=== PATIENT | female | born 1940 | race Caucasian/White ===

== ENCOUNTER 2018-11-18 11:51 | Inpatient (IN) | payer OTHER ==
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
[2018-11-18] MEDS ORDERED: morphine CARPU-JECT 4 MG/1 ML DISP.SYRIN IVPUSH ONE ×2 (12:13→12:30)
[2018-11-18] MEDS ORDERED: LIDOCAINE 5% TOPICAL PATCH TP ONE (12:13)
[2018-11-18] MEDS ORDERED: METHOCARBAMOL 500 MG TABLET PO ONE (12:13)
[2018-11-18] MEDS ORDERED: LIDOCAINE 5% TOPICAL PATCH ONE ×2 (12:22→22:31)
[2018-11-18] MEDS ORDERED: METHOCARBAMOL 500 MG TABLET ONE (12:22)
[2018-11-18] MEDS ORDERED: ACETAMINOPHEN 1000 MG/100 ML VIAL (NON FORMULARY) IVPB ONE (12:30)
[2018-11-18 13:02] LABS: BASO % 0.2 % (0-2.0); EOS % 0.4 % (0-4.5); HEMATOCRIT 33.8 % (32.4-45.2); HEMOGLOBIN 11.7 GM/dL (10.7-15.3); MCH 30.3 pg (25.7-33.7); MCHC 34.5 g/dl (32.0-36.0); MEAN CELL VOLUME 87.7 fl (80-96); MEAN PLT VOLUME 7.8 fl (7.5-11.1); MONO % 5.8 % (3.8-10.2); NEUT % 78.6 % (42.8-82.8); PLATELET COUNT 185 K/MM3 (134-434); RBC 3.85 M/mm3 (3.60-5.2); RDW 14.6 % (11.6-15.6); WHITE BLOOD COUNT 4.2 K/mm3 (4.0-10.0)
[2018-11-18] MEDS ORDERED: ACETAMINOPHEN INJECTION 100 ML IVPB ONE (13:02)
[2018-11-18 14:03] LABS: ALBUMIN 3.5 g/dl (3.4-5.0); ALK PHOS 69 U/L (45-117); ANION GAP 7 MMOL/L (8-16); BILIRUBIN,TOTAL 0.3 mg/dL (0.2-1); BLOOD UREA NITROGEN 23 mg/dL (7-18); CALCIUM 8.6 mg/dL (8.5-10.1); CHLORIDE 110 mmol/L (98-107); CO2 25 mmol/L (21-32); CREATININE 0.9 mg/dL (0.55-1.3); GLUCOSE,RANDOM 89 mg/dL (74-106); POTASSIUM 3.7 mmol/L (3.5-5.1); SGOT/AST 19 U/L (15-37); SGPT/ALT 17 U/L (13-61); SODIUM 141 mmol/L (136-145)
[2018-11-18] MEDS ORDERED: HYDROmorphone HCL CARPU-JECT 2 MG/1 ML DISP.SYRIN IVPB ONE (15:36)
[2018-11-18] MEDS ORDERED: HYDROmorphone HCl 2 MG/ML VIAL ONE (17:16)
[2018-11-18] MEDS ORDERED: SENNOSIDES 8.6MG TABLET (FP) PO PRN ×2 (18:57→19:05)
[2018-11-18] MEDS ORDERED: DOCUSATE SODIUM 100 MG CAPSULE (FP) PO PRN (18:57)
[2018-11-18] MEDS ORDERED: ACETAMINOPHEN 325 MG TABLET (FP) PO PRN (19:05)
[2018-11-18] MEDS ORDERED: ACETAMINOPHEN 325 MG TABLET (FP) ONE ×3 (19:54→21:00)
[2018-11-18] MEDS: ACETAMINOPHEN 325 MG TABLET (FP) PO SCH (21:00)
[2018-11-18] MEDS ORDERED: LIDOCAINE PATCH REMOVAL MC SCH (22:00)
[2018-11-18] MEDS ORDERED: POTASSIUM CHLORIDE ORAL LIQUID 20 MEQ/15 ML PO ONE (22:15)
[2018-11-18] MEDS ORDERED: MORPHINE SULFATE 2 MG/ML VIAL ONE (22:27)
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
[2018-11-18] MEDS ORDERED: POTASSIUM CHLORIDE ORAL LIQUID 20 MEQ/15 ML ONE (22:30)
[2018-11-18] MEDS ORDERED: HEPARIN NA (PORCINE) 5,000 UNITS/ML 1ML VIAL ONE (22:31)
[2018-11-18] MEDS: HEPARIN NA (PORCINE) 5,000 UNITS/ML 1ML VIAL SQ SCH (22:40)
[2018-11-18] MEDS: MORPHINE SULFATE 2 MG/ML VIAL IVPUSH PRN (22:40)
[2018-11-18] MEDS: MELATONIN 1 MG TABLET PO SCH (22:51)
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
[2018-11-18] MEDS ORDERED: LORazepam 0.5 MG TABLET ONE (22:59)
[2018-11-18] MEDS: LORazepam 1 MG TABLET PO SCH (23:05)
[2018-11-19] MEDS ORDERED: HYDROmorphone HCl 2 MG/ML VIAL IVPB ONE ×2 (01:10→07:07)
[2018-11-19] MEDS: ACETAMINOPHEN 325 MG TABLET (FP) PO SCH ×5 (01:17→21:19)
[2018-11-19 02:20] VITALS: BMI 25.0
[2018-11-19] MEDS: MORPHINE SULFATE 2 MG/ML VIAL IVPUSH PRN (05:19)
[2018-11-19] MEDS: LEVOTHYROXINE 125 MCG, LEVOTHYROXINE 100 MCG PO SCH (06:08)
[2018-11-19 07:42] LABS: BASO % 0.6 % (0-2.0); EOS % 1.8 % (0-4.5); HEMOGLOBIN 11.1 GM/dL (10.7-15.3); LYMPH % 24.7 % (8-40); MCH 29.9 pg (25.7-33.7); MCHC 33.5 g/dl (32.0-36.0); MEAN CELL VOLUME 89.2 fl (80-96); NEUT % 64.9 % (42.8-82.8); PLATELET COUNT 162 K/MM3 (134-434); RDW 14.8 % (11.6-15.6); WHITE BLOOD COUNT 3.1 K/mm3 (4.0-10.0)
[2018-11-19 09:35] LABS: ALBUMIN 3.4 g/dl (3.4-5.0); ALK PHOS 72 U/L (45-117); ANION GAP 9 MMOL/L (8-16); BILIRUBIN,TOTAL 1.1 mg/dL (0.2-1); BLOOD UREA NITROGEN 20 mg/dL (7-18); CALCIUM 8.1 mg/dL (8.5-10.1); CHLORIDE 108 mmol/L (98-107); CO2 22 mmol/L (21-32); CREATININE 0.9 mg/dL (0.55-1.3); GLUCOSE,RANDOM 86 mg/dL (74-106); MAGNESIUM 1.8 mg/dL (1.8-2.4); PHOSPHOROUS 3.4 mg/dL (2.5-4.9); POTASSIUM 4.3 mmol/L (3.5-5.1); SGOT/AST 19 U/L (15-37); SGPT/ALT 16 U/L (13-61); SODIUM 139 mmol/L (136-145); TOT PROT 6.8 g/dl (6.4-8.2)
[2018-11-19] MEDS ORDERED: LEVOTHYROXINE NA 200 MCG TABLET PO SCH (10:00)
[2018-11-19] MEDS: LORATADINE 10 MG TABLET PO SCH (10:02)
[2018-11-19] MEDS: LORazepam 1 MG TABLET PO SCH ×2 (10:02→22:01)
[2018-11-19] MEDS: POTASSIUM CHLORIDE TABS 10 MEQ TABLET.ER (FP) PO SCH ×2 (10:02→22:02)
[2018-11-19] MEDS: CALCITRIOL 0.25 MCG CAPSULE (FP) PO SCH (10:02)
[2018-11-19] MEDS: RANITIDINE HCL 150 MG TABLET (FP) PO SCH (10:02)
[2018-11-19] MEDS: amLODIPine BESYLATE 5 MG TABLET (FP) PO SCH (10:03)
[2018-11-19] MEDS ORDERED: oxyCODONE HCL 10 MG SUSTAINED ACTING TABLET PO ONE (10:11)
[2018-11-19] MEDS: HEPARIN NA (PORCINE) 5,000 UNITS/ML 1ML VIAL SQ SCH ×2 (10:13→22:01)
[2018-11-19] MEDS: CITALOPRAM HYDROBROMIDE 20 MG TABLET (FP) PO SCH (10:17)
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
--- NOTE | 2018-11-19 11:56 | EKG ---
Test Reason : Blood Pressure : / mmHG Vent. Rate : 072 BPM Atrial Rate : 072 BPM P-R Int : 158 ms QRS Dur : 088 ms QT Int : 428 ms P-R-T Axes : 028 018 043 degrees QTc Int : 468 ms NORMAL SINUS RHYTHM NORMAL ECG NO PREVIOUS ECGS AVAILABLE Confirmed by MARIOLA HAMM MD ([id number]) on 11/19/2018 11:55:55 AM Referred By: Confirmed By:MARIOLA HAMM MD
--- NOTE | 2018-11-19 13:16 | PN ---
Progress Note (short form) - Note Progress Note: Discussed rationale for bracing with patient and patient was given TLSO brace. Family in attendance and discussion on expectations for 3 month course of bracing for treatment of the L1 fracture held. All are in agreement. - Physical Therapy - Pain control - GI/DVT prophylaxis - Standing films in brace - Will follow
[2018-11-19] MEDS: oxyCODONE HCL 5 MG TABLET PO SCH ×3 (13:37→21:20)
[2018-11-19] MEDS: DOCUSATE SODIUM 100 MG CAPSULE (FP) PO PRN (13:38)
[2018-11-19] MEDS: HYDROmorphone HCl 2 MG/ML VIAL IVPB PRN (16:37)
[2018-11-19] MEDS ORDERED: oxyCODONE HCL 5 MG TABLET PO SCH (19:45)
[2018-11-19] MEDS ORDERED: PT OWN MED DRAWER 7, Y5N ONE (20:30)
[2018-11-19] MEDS: MELATONIN 1 MG TABLET PO SCH (22:02)
[2018-11-20] MEDS: HYDROmorphone HCl 2 MG/ML VIAL IVPB PRN ×3 (02:27→18:55)
[2018-11-20] MEDS: oxyCODONE HCL 5 MG TABLET PO SCH ×3 (02:48→12:45)
[2018-11-20] MEDS: ACETAMINOPHEN 325 MG TABLET (FP) PO SCH ×3 (02:49→12:45)
[2018-11-20] MEDS ORDERED: LEVOTHYROXINE NA 125 MCG TABLET (FP) ONE (05:40)
[2018-11-20] MEDS ORDERED: LEVOTHYROXINE NA 100 MCG TABLET (FP) ONE (05:40)
[2018-11-20] MEDS: LEVOTHYROXINE 125 MCG, LEVOTHYROXINE 100 MCG PO SCH (06:20)
[2018-11-20] MEDS: CITALOPRAM HYDROBROMIDE 20 MG TABLET (FP) PO SCH (09:18)
[2018-11-20] MEDS: POTASSIUM CHLORIDE TABS 10 MEQ TABLET.ER (FP) PO SCH (09:18)
[2018-11-20] MEDS: CALCITRIOL 0.25 MCG CAPSULE (FP) PO SCH (09:18)
[2018-11-20] MEDS: RANITIDINE HCL 150 MG TABLET (FP) PO SCH (09:18)
[2018-11-20] MEDS: LORATADINE 10 MG TABLET PO SCH (09:18)
[2018-11-20] MEDS: amLODIPine BESYLATE 5 MG TABLET (FP) PO SCH (09:19)
[2018-11-20] MEDS: HEPARIN NA (PORCINE) 5,000 UNITS/ML 1ML VIAL SQ SCH ×2 (09:19→22:42)
[2018-11-20] MEDS: LORazepam 1 MG TABLET PO SCH ×2 (09:20→22:42)
[2018-11-20] MEDS: DOCUSATE SODIUM 100 MG CAPSULE (FP) PO PRN (11:01)
--- NOTE | 2018-11-20 12:24 | PN ---
Physical Exam: SUBJECTIVE: Patient seen and examined, she dose not look to be in any distress at this time and has just received the hydromorphone but states that she has had severe pain while walking with the PT earlier today. she has had no BM yet but states that feels as she wants to go to bathroom OBJECTIVE: Vital Signs Period Temp Pulse Resp BP Sys/Dawn Pulse Ox Last 24 Hr 98.6 F-99.1 F 60-74 20-20 125-161/62-78 95 GENERAL: The patient is awake, alert, and fully oriented, in no acute distress. HEAD: Normal with no signs of trauma. EYES: PERRL, extraocular movements intact, sclera anicteric, conjunctiva clear. No ptosis. ENT: Ears normal, nares patent, oropharynx clear without exudates, moist mucous membranes. NECK: Trachea midline, full range of motion, supple. LUNGS: Breath sounds equal, clear to auscultation bilaterally, no wheezes, no crackles, no accessory muscle use. HEART: Regular rate and rhythm, S1, S2 without murmur, rub or gallop. ABDOMEN: Soft, nontender, nondistended, normoactive bowel sounds, no guarding, no rebound, . EXTREMITIES: 2+ pulses, warm, well-perfused, no edema. NEUROLOGICAL: Cranial nerves II through XII grossly intact. she has tenderness over the r side of the paravertebral muscles , no bruises in the area PSYCH: Normal mood, normal affect. SKIN: Warm, dry, normal turgor, no rashes or lesions noted she was able to get out of the bed with no help Active Medications Generic Name Dose Route Start Last Admin Trade Name Ruba PRN Reason Stop Dose Admin Acetaminophen 650 mg 11/18/18 19:05 Tylenol - PO Q6H PRN PAIN LEVEL 4 - 6 Acetaminophen 325 mg 11/18/18 19:45 11/20/18 06:21 Tylenol - PO 325 mg Q6HPO [facility] Administration Amlodipine Besylate 5 mg 11/19/18 10:00 11/20/18 09:19 Norvasc - PO 5 mg DAILY ELANA Administration Calcitriol 0.25 mcg 11/19/18 10:00 11/20/18 09:18 Rocaltrol - PO 0.25 mcg DAILY ELANA Administration Citalopram Hydrobromide 20 mg 11/19/18 10:00 11/20/18 09:18 Celexa - PO 20 mg DAILY ELANA Administration Docusate Sodium 100 mg 11/18/18 19:05 11/20/18 11:01 Colace - PO 100 mg BID PRN Administration CONSTIPATION Heparin Sodium (Porcine) 5,000 unit 11/18/18 22:00 11/20/18 09:19 Heparin - SQ 5,000 unit BID ELANA Administration Hydromorphone HCl 1 mg 11/19/18 11:01 11/20/18 11:01 Dilaudid Vial - IVPB 1 mg Q8H PRN Administration PAIN LEVEL 6-10 Levothyroxine Sodium 125 mcg/ 225 mcg 11/19/18 07:00 11/20/18 06:20 Levothyroxine Sodium 100 mcg PO 225 mcg DAILY@0700 ELANA Administration Loratadine 10 mg 11/19/18 10:00 11/20/18 09:18 Claritin - PO 10 mg DAILY ELANA Administration Lorazepam 2 mg 11/18/18 22:45 11/20/18 09:20 Ativan - PO Not Given BID E[facility]NA Melatonin 3 mg 11/18/18 22:00 11/19/18 22:02 Melatonin PO Not Given HS [facility] Oxycodone HCl 20 mg 11/20/18 22:00 Oxycontin - PO BID ELANA Potassium Chloride 10 meq 11/19/18 10:00 11/20/18 09:18 K-Dur - PO 10 meq BID [facility] Administration Ranitidine HCl 300 mg 11/19/18 10:00 11/20/18 09:18 Zantac - PO 300 mg DAILY E[facility] Administration Senna 2 tab 11/18/18 18:57 Senna - PO HS PRN CONSTIPATION Labs: CBCD WBC 3.1 K/mm3 (4.0-10.0) L 11/19/18 07:00 RBC 3.70 M/mm3 (3.60-5.2) 11/19/18 07:00 Hgb 11.1 GM/dL (10.7-15.3) 11/19/18 07:00 Hct 33.0 % (32.4-45.2) 11/19/18 07:00 MCV 89.2 fl (80-96) 11/19/18 07:00 MCHC 33.5 g/dl (32.0-36.0) 11/19/18 07:00 RDW 14.8 % (11.6-15.6) 11/19/18 07:00 Plt Count 162 K/MM3 (134-434) 11/19/18 07:00 MPV 8.0 fl (7.5-11.1) 11/19/18 07:00 CMP Sodium 139 mmol/L (136-145) 11/19/18 07:00 Potassium 4.3 mmol/L (3.5-5.1) 11/19/18 07:00 Chloride 108 mmol/L (98-107) H 11/19/18 07:00 Carbon Dioxide 22 mmol/L (21-32) 11/19/18 07:00 Anion Gap 9 MMOL/L (8-16) 11/19/18 07:00 BUN 20 mg/dL (7-18) H 11/19/18 07:00 Creatinine 0.9 mg/dL (0.55-1.3) 11/19/18 07:00 Creat Clearance w eGFR > 60 (>60) 11/19/18 07:00 Random Glucose 86 mg/dL (74-106) 11/19/18 07:00 Calcium 8.1 mg/dL (8.5-10.1) L 11/19/18 07:00 Total Bilirubin 1.1 mg/dL (0.2-1) H 11/19/18 07:00 AST 19 U/L (15-37) 11/19/18 07:00 ALT 16 U/L (13-61) 11/19/18 07:00 Alkaline Phosphatase 72 U/L (45-117) 11/19/18 07:00 Total Protein 6.8 g/dl (6.4-8.2) 11/19/18 07:00 Albumin 3.4 g/dl (3.4-5.0) 11/19/18 07:00 CARDIAC ENZYMES Creatine Kinase 51 IU/L (26-192) 11/19/18 07:00 Troponin I < 0.02 ng/ml (0.00-0.05) 11/18/18 12:50 ASSESSMENT/PLAN: she complains of back pain which has been improving, she has been walking with the help of the PT for the past 2 days. she states that she has pain between the doses of. mechanical fall and back pain with no FX in the imaging, she is mobile at this time. will try to give her oxycodone SR for today and will meause the need for dilauded IV. likely to be DCed tomorrow home as she has good support at home. pain management: oxycodone SL today and dilauded as needed she has bowel regimen still pending BM DVT XPP: HEPARIN SQ and scd Will C.W rest of her home medication concern for hypokalemia: she has not been hypokalemic here, will DC the K supplement hypothyroidism: C/W levothyroxin Visit type - Emergency Visit Emergency Visit: No - New Patient This patient is new to me today: No - Critical Care Critical Care patient: No - Discharge Referral Referred to [facility] No
--- NOTE | 2018-11-20 12:28 | PN ---
Progress Note (short form) - Note Progress Note: Progress Note: Surgery Patient seen at bedside with Dr Aquino. Patient comfortable with no new complaints. Aide at bedside X-Ray of lumbar spine standing in TLSO brace reveal L1 fracture with no significant angulation Patient with L1 fracture in acceptable alignment, stable in brace. Plan: 1) OOB and WBAT in TLSO brace -may remove to sleep 2) pain contol 3) f/u with Dr Aquino as out patient in 3 months time Evaluation and plan discussed with Dr Miller
[2018-11-20] MEDS: LIDOCAINE 5% TOPICAL PATCH TP SCH (13:00)
[2018-11-20 13:34] LABS: ANION GAP 5 MMOL/L (8-16); BLOOD UREA NITROGEN 16 mg/dL (7-18); CALCIUM 8.5 mg/dL (8.5-10.1); CHLORIDE 105 mmol/L (98-107); CO2 27 mmol/L (21-32); CREATININE 0.9 mg/dL (0.55-1.3); GLUCOSE,RANDOM 139 mg/dL (74-106); POTASSIUM 4.3 mmol/L (3.5-5.1); SODIUM 137 mmol/L (136-145)
[2018-11-20] MEDS ORDERED: LIDOCAINE PATCH REMOVAL MC SCH (22:00)
[2018-11-20] MEDS: MELATONIN 1 MG TABLET PO SCH (22:42)
[2018-11-20] MEDS: oxyCODONE HCL 10 MG SUSTAINED ACTING TABLET PO SCH (22:42)
[2018-11-21] MEDS ORDERED: LEVOTHYROXINE NA 100 MCG TABLET (FP) ONE (06:16)
[2018-11-21] MEDS ORDERED: LEVOTHYROXINE NA 125 MCG TABLET (FP) ONE (06:16)
[2018-11-21] MEDS: LEVOTHYROXINE 125 MCG, LEVOTHYROXINE 100 MCG PO SCH (06:22)
[2018-11-21] MEDS: HYDROmorphone HCl 2 MG/ML VIAL IVPB PRN (07:04)
[2018-11-21 10:42] VITALS: BP 115/71; PULSE 74; TEMP 97.2
[2018-11-21] MEDS: RANITIDINE HCL 150 MG TABLET (FP) PO SCH (10:49)
[2018-11-21] MEDS: oxyCODONE HCL 10 MG SUSTAINED ACTING TABLET PO SCH (10:49)
[2018-11-21] MEDS: CITALOPRAM HYDROBROMIDE 20 MG TABLET (FP) PO SCH (10:49)
[2018-11-21] MEDS: CALCITRIOL 0.25 MCG CAPSULE (FP) PO SCH (10:49)
[2018-11-21] MEDS: amLODIPine BESYLATE 5 MG TABLET (FP) PO SCH (10:49)
[2018-11-21] MEDS: LORATADINE 10 MG TABLET PO SCH (10:49)
[2018-11-21] MEDS: LORazepam 1 MG TABLET PO SCH ×2 (10:49→11:02)
[2018-11-21] MEDS: HEPARIN NA (PORCINE) 5,000 UNITS/ML 1ML VIAL SQ SCH (10:53)
[2018-11-21] MEDS: LIDOCAINE 5% TOPICAL PATCH TP SCH (10:54)
[2018-11-21] MEDS ORDERED: POLYETHYLENE GLYCOL 3350 119 GM BTL PO SCH (11:00)
--- NOTE | 2018-11-21 11:27 | DS ---
Physical Exam: SUBJECTIVE: Patient seen and examined OBJECTIVE: Vital Signs Period Temp Pulse Resp BP Sys/Dawn Pulse Ox Last 24 Hr 97.2 F-98.6 F 72-76 20-20 115-161/65-82 95 PHYSICAL EXAM GENERAL: The patient is awake, alert, and fully oriented, in no acute distress. HEAD: Normal with no signs of trauma. EYES: PERRL, extraocular movements intact, sclera anicteric, conjunctiva clear. ENT: Ears normal, nares patent, oropharynx clear without exudates, moist mucous membranes. NECK: Trachea midline, full range of motion, supple. LUNGS: Breath sounds equal, clear to auscultation bilaterally, no wheezes, no crackles, no accessory muscle use. HEART: Regular rate and rhythm, S1, S2 without murmur, rub or gallop. ABDOMEN: Soft, nontender, nondistended, normoactive bowel sounds, no guarding, no rebound, no hepatosplenomegaly, no masses. EXTREMITIES: 2+ pulses, warm, well-perfused, no edema. NEUROLOGICAL: Cranial nerves II through XII grossly intact. Normal speech, gait not observed. PSYCH: Normal mood, normal affect. SKIN: Warm, dry, normal turgor, no rashes or lesions noted. LABS Laboratory Results - last 24 hr 11/20/18 12:30 Sodium 137 Potassium 4.3 Chloride 105 Carbon Dioxide 27 Anion Gap 5 L BUN 16 Creatinine 0.9 Creat Clearance w eGFR > 60 Random Glucose 139 H Calcium 8.5 HOSPITAL COURSE: Date of Admission:11/18/18 Date of Discharge: 11/21/18 she is stable and has no pains she is going to be taken care by her PMD and she has home health aid and she is set up for home pt she is going to f/u with neurosurgery Discharge Summary Reason For Visit: COMPRESSION FRACTURE OF L1 VERTEBRA Current Active Problems Compression fracture of L1 lumbar vertebra (Acute) Depression (Acute) GERD (gastroesophageal reflux disease) (Acute) HTN (hypertension) (Acute) Hypokalemia (Acute) Hypothyroidism (Acute) Insomnia disorder (Acute) Prophylactic measure (Acute) Condition: Improved - Instructions Diet, Activity, Other Instructions: WBAT with TLSO brace. May remove to sleep Follow up with Dr Aquino in 3 months time as discussed. Disposition: HOME - Home Medications Comprehensive Discharge Medication List: Ambulatory Orders Ascorbic Acid [Vitamin C] 1,000 mg PO DAILY 11/18/18 Aspirin [ASA -] 81 mg PO DAILY 11/18/18 Bifidobacterium Infantis [Align] 4 mg PO DAILY 11/18/18 Calcium Lactate 648 gm MC BID 11/18/18 Cholecalciferol (Vitamin D3) [Vitamin D3] 600 unit PO DAILY 11/18/18 Famotidine [Pepcid] 40 mg PO DAILY 11/18/18 Ginkgo Biloba 60 mg PO DAILY 11/18/18 Glucosam/Chondroit/C/Manganese [Cosamin Ds Capsule] 1 each PO DAILY 11/18/18 Levothyroxine [Synthroid -] 225 mcg PO DAILY 11/18/18 Loratadine [Claritin] 10 mg PO DAILY 11/18/18 Methylcellulose [Citrucel] 500 mg PO DAILY 11/18/18 Multivit-Min/Iron/Folic/Fbw726 [Hair, Skin and Nails Tablet] 1 dose PO DAILY Mv-Min/Iron/Folic/Calcium/Vitk [Women's Multivitamin Tablet] 1 each PO DAILY Psyllium Husk [Daily Fiber] 0.52 gm PO DAILY 11/18/18 Ubidecarenone [Co Q-10] 200 mg PO DAILY 11/18/18 Vitamin B Complex 1 each PO DAILY 11/18/18 Acetaminophen [Tylenol .Regular Strength -] 650 mg PO Q6H PRN tablet 11/21/18 Amlodipine Besylate [Norvasc -] 5 mg PO DAILY tablet 11/21/18 Calcitriol [Calcitriol -] 0.25 mcg PO DAILY capsule 11/21/18 Citalopram Hydrobromide [Citalopram HBr] 20 mg PO DAILY #30 tablet 11/21/18 Docusate Sodium [Colace -] 100 mg PO BID PRN capsule 11/21/18 Lidocaine 5% Patch [Lidoderm -] 1 patch TP DAILY #0 patch 11/21/18 Ranitidine [Zantac -] 300 mg PO DAILY #0 tablet 11/21/18 Sennosides [Senna -] 2 tab PO HS PRN tablet 11/21/18 oxyCODONE HCL [Roxicodone -] 5 mg PO Q6HPO #30 tab MDD 4 11/21/18 This patient is new to me today: Yes Date on this admission: 11/21/18 Emergency Visit: Yes ED Registration Date: 11/18/18 Care time: The patient presented to the Emergency Department on the above date and was hospitalized for further evaluation of their emergent condition. Critical Care patient: No - Discharge Referral Referred to [facility] No
== END 2018-11-21 14:02 | disposition home or self-care (01) | DRG 552 ==
LOC: JER 11:51 → JERBED 15:41 → OBSVTOIN 18:57 → J5S 11-19 00:45
PROVIDERS: ADMIT Internal Medicine; ATTEND Internal Medicine
DX: S32.010A Wedge compression fracture of first lumbar vertebra, initial encounter for closed fracture (principal); Q61.3 Polycystic kidney, unspecified; K21.9 Gastro-esophageal reflux disease without esophagitis; E03.9 Hypothyroidism, unspecified; I10 Essential (primary) hypertension; E87.6 Hypokalemia; G47.00 Insomnia, unspecified; F41.8 Other specified anxiety disorders; W19.XXXA Unspecified fall, initial encounter; Y93.9 Activity, unspecified; Y92.89 Other specified places as the place of occurrence of the external cause; Y99.9 Unspecified external cause status
CPT/HCPCS: 36415; 70450-TC; 72100-TC-FY; 72125-TC; 72131-TC; 72192-TC; 80048; 80053; 82550; 83735; 84100; 84439; 84443; 84484; 85025; 93005; 93010; 97116-GP; 97161-GP; 99284-25; G0378; J0131; J1644